=== PATIENT | male | born 1975 | race Caucasian/White ===

== ENCOUNTER 2022-05-06 08:13 | Outpatient (CLI) | payer OTHER, SELFPAY ==
[2022-05-06 14:06] LABS: Albumin* 4.5 g/dL (3.3-5.0); Chloride* 105 mmol/L (96-114)
[2022-05-06 14:07] LABS: Potassium* 4.7 mmol/L (3.6-5.1); Sodium* 140 mmol/L (135-149)
[2022-05-06 14:08] LABS: Cholesterol* 175 mg/dL (90-199)
[2022-05-06 14:09] LABS: Alanine Aminotransferase* 41 U/L (4-50); Alkaline Phosphatase* 45 U/L (40-150); Aspartate Amino Transferase* 39 U/L (12-35); Bilirubin Total* 0.6 mg/dL (0.1-1.5); Blood Urea Nitrogen* 17 mg/dL (5-24); Carbon Dioxide* 30 mmol/L (20-32); Estimated Glomerular Filt Rate 95 ml/min; Glucose* 92 mg/dL (60-115); Total Protein* 6.7 g/dL (6.0-8.3)
[2022-05-06 14:10] LABS: Calcium* 9.1 mg/dL (8.4-10.6); HDL Cholesterol* 40 mg/dL (>=40); LDL Cholesterol Calculated 103 mg/dL (<100); Triglycerides* 161 mg/dL (40-149)
== END 2022-05-06 08:14 | disposition home or self-care (01) ==
LOC: LKVREF 08:13
PROVIDERS: PCP Family Medicine; Visit Provider Family Medicine
DX: Z00.00 Encounter for general adult medical examination without abnormal findings (principal); E78.00 Pure hypercholesterolemia, unspecified; F41.8 Other specified anxiety disorders
CPT/HCPCS: 80053; 80061

== ENCOUNTER 2022-06-14 08:42 | Outpatient (CLI) | payer OTHER, SELFPAY ==
--- NOTE | 2022-06-14 09:58 | W.ANESCHARGE ---
Anesthesia Charges Start Date/Time Anesthesia Start Date: 06/14/22 Anesthesia Start Time: 09:38 Stop Date/Time Anesthesia Stop Date: 06/14/22 Anesthesia Stop Time: 10:02 Summary Emergency: No
--- NOTE | 2022-06-14 10:07 | W.ANESCHARGE ---
Anesthesia Charges Start Date/Time Anesthesia Start Date: 06/14/22 Anesthesia Start Time: 09:38 Stop Date/Time Anesthesia Stop Date: 06/14/22 Anesthesia Stop Time: 10:02 Summary Emergency: No
== END 2022-06-14 08:43 | disposition home or self-care (01) ==
LOC: OP CLINIC 08:45
PROVIDERS: PCP Family Medicine; Visit Provider Internal Medicine
DX: Z12.11 Encounter for screening for malignant neoplasm of colon (principal); K63.5 Polyp of colon
CPT/HCPCS: 00811; 45380; 88305; J2704

== ENCOUNTER 2023-06-11 08:15 | Outpatient (CLI) | payer BC, SELFPAY | END 2023-06-11 08:16 | disposition home or self-care (01) | LOC: NFLDREF 06-16 05:26 | PROVIDERS: PCP Family Medicine; Referring Provider Family Medicine; Visit Provider Family Medicine | DX: Z00.00 Encounter for general adult medical examination without abnormal findings (principal); E78.00 Pure hypercholesterolemia, unspecified; I49.9 Cardiac arrhythmia, unspecified | CPT/HCPCS: 80053; 80061 ==

== ENCOUNTER 2024-09-23 09:47 | Outpatient (CLI) | payer BC, SELFPAY | END 2024-09-23 09:48 | disposition home or self-care (01) | LOC: NFLDREF 09-26 20:31 | PROVIDERS: PCP Family Medicine; Referring Provider Family Medicine; Visit Provider Family Medicine | DX: Z00.01 Encounter for general adult medical examination with abnormal findings (principal); E78.00 Pure hypercholesterolemia, unspecified | CPT/HCPCS: 80061; 80076 ==

== ENCOUNTER 2025-02-04 08:10 | Outpatient (CLI) | payer BC, SELFPAY | END 2025-02-04 08:11 | disposition home or self-care (01) | LOC: NFLDREF 02-09 10:45 | PROVIDERS: PCP Family Medicine; Referring Provider Family Medicine; Visit Provider Family Medicine | DX: E78.00 Pure hypercholesterolemia, unspecified (principal); F41.8 Other specified anxiety disorders; R68.82 Decreased libido | CPT/HCPCS: 80061; 80076 ==